=== PATIENT | female | born 1995 | race African-American/Black ===

== ENCOUNTER 2025-05-17 12:19 | Emergency (ER) | payer MEDICAID ==
[~2025-05-17] VITALS: Ht 167.6 cm; Wt 70.0 kg
[~2025-05-17 12:19] MED LIST: NITR-87 MT
[2025-05-17 12:20] VITALS: O2SAT 98
[2025-05-17 12:34] VITALS: BP 120/82; PULSE 102; RESP 18; TEMP 36.8; O2SAT 98
== END 2025-05-17 14:28 | disposition left against medical advice (07) ==
LOC: ER 12:19
DX: S63.509A Unspecified sprain of unspecified wrist, initial encounter (principal); Z53.21 Procedure and treatment not carried out due to patient leaving prior to being seen by health care provider; X58.XXXA Exposure to other specified factors, initial encounter; Y93.89 Activity, other specified; Y92.89 Other specified places as the place of occurrence of the external cause; Y99.8 Other external cause status
CPT/HCPCS: 81025; 99281